=== PATIENT | male | born 1975 | race Caucasian/White ===

== ENCOUNTER → 2016-12-23 | Outpatient (CLI) | payer BC | LOC: MW.CHRC 14:33 | PROVIDERS: ATTEND Family Medicine | DX: R42 Dizziness and giddiness (principal) | CPT/HCPCS: 36415; 86592 ==

== ENCOUNTER 2018-10-12 10:40 | Day surgery (SDC) | payer BC ==
--- NOTE | 2018-10-12 07:11 | PCM.PREANE ---
Preanesthetic Assessment - Procedure Proposed Procedure: excision lesion on nose - Anesthesia/Transfusion/Family Hx Anesthesia History: Prior Anesthesia Without Reaction (colonoscopy, T+A: mac and ga without problems) Family History of Anesthesia Reaction: No Transfusion History: No Prior Transfusion(s) - Review of Systems Pulmonary: No Symptoms (smoker) Other: Reports: None (kidney stones, history of situation depression when parent ) - Physical Assessment NPO Status Date: 10/12/18 NPO Status Time: 00:00 Height: 1.78 m Weight: 78.018 kg - Allergies Allergies/Adverse Reactions: Allergies Allergy/AdvReac Type Severity Reaction Status Date / Time No Known Allergies Allergy Verified 10/10/18 09:09 - Blood Blood Available: No Product(s) Available: None - Anesthesia Plan Pre-Op Medication Ordered: None - Acknowledgements Anesthesia Type Planned: MAC PreAnesthesia Questionnaire HEENT History: Reports: None Gastrointestinal History: Reports: None Genitourinary History: Reports: Renal Calculus Musculoskeletal History: Reports: Fracture Other Musculoskeletal History: hx fx fingers Psychiatric History: Reports: Depression Other Psychiatric History: "depression in the past after parents " - Infectious Disease History Infectious Disease History: Reports: Chicken Pox - Past Surgical History Head Surgeries/Procedures: Reports: None HEENT Surgical History: Reports: Tonsillectomy GI Surgical History: Reports: Colonoscopy - SUBSTANCE USE Smoking Status *Q: Former Smoker Recreational Drug Use History: No - HOME MEDS Home Medications: Home Meds . [No Known Home Meds] 10/10/18 [History] - CURRENT (IN HOUSE) MEDS Current Meds: Current Medications Bupivacaine HCl/Epinephrine Bitart (Marcaine 0.25%/Epinephrine 1:200,000) 10 ml INJECT ONETIME ONE Stop: 10/12/18 08:01 Cefazolin Sodium/Dextrose 2 gm (/ Premix) 50 mls @ 100 mls/hr IV ONETIME ONE Stop: 10/12/18 08:29 Lactated Ringer's (Ringers, Lactated) 1,000 mls @ 125 mls/hr IV ASDIRECTED [facility]
[~2018-10-12 10:40] MED LIST: Bupivacaine 0.25%/EPINEPHrine 1:200,000 10 ML SDV INJECT ONE; Lactated Ringers 1,000 ML IV SCH; Midazolam 1 MG/ML 2 ML SDV ONE; Ondansetron 4 MG/2 ML SDV ONE; Propofol 200 MG/20 ML SDV ONE; ceFAZolin 2 GM in Premix Bag 1 BAG IV ONE; ceFAZolin/Dextrose,Iso-Osmotic 2 GM/50 ML Duplex Bag IV ONE; fentaNYL 250 MCG/5 ML SDV ONE
--- NOTE | 2018-10-12 11:45 | PCM.PREANE ---
Preanesthetic Assessment - Anesthesia/Transfusion/Family Hx Anesthesia History: Prior Anesthesia Without Reaction Family History of Anesthesia Reaction: No Transfusion History: No Prior Transfusion(s) - Review of Systems General: No Symptoms Pulmonary: No Symptoms Cardiovascular: No Symptoms Gastrointestinal: No Symptoms Neurological: No Symptoms Other: Reports: None (kidney stones, history of situation depression when parent ) - Physical Assessment NPO Status Date: 10/12/18 NPO Status Time: 00:00 O2 Sat by Pulse Oximetry: 97 Respiratory Rate: 16 Vital Signs: Last Vital Signs Temp 97.7 F 10/12/18 11:20 Pulse 64 10/12/18 11:20 Resp 16 10/12/18 11:20 BP 135/85 10/12/18 11:20 Pulse Ox 97 10/12/18 11:20 Height: 5 ft 10 in Weight: 78.018 kg ASA Class: 2 Mental Status: Alert & Oriented x3 Airway Class: Mallampati = 1 Dentition: Reports: Normal Dentition ROM/Head Extension: Full Lungs: Clear to Auscultation, Normal Respiratory Effort Cardiovascular: Regular Rate, Regular Rhythm - Allergies Allergies/Adverse Reactions: Allergies Allergy/AdvReac Type Severity Reaction Status Date / Time No Known Allergies Allergy Verified 10/10/18 09:09 - Blood Blood Available: No Product(s) Available: None - Anesthesia Plan Pre-Op Medication Ordered: None - Acknowledgements Anesthesia Type Planned: MAC Pt an Appropriate Candidate for the Planned Anesthesia: Yes Alternatives and Risks of Anesthesia Discussed w Pt/Guardian: Yes Pt/Guardian Understands and Agrees with Anesthesia Plan: Yes Additional Comments: PMH: smoker-vapes, no meds, no alleries, BMI=24 PLAN: MAC PreAnesthesia Questionnaire HEENT History: Reports: None Gastrointestinal History: Reports: None Genitourinary History: Reports: Renal Calculus Musculoskeletal History: Reports: Fracture Other Musculoskeletal History: hx fx fingers Psychiatric History: Reports: Depression Other Psychiatric History: "depression in the past after parents " - Infectious Disease History Infectious Disease History: Reports: Chicken Pox - Past Surgical History Head Surgeries/Procedures: Reports: None HEENT Surgical History: Reports: Tonsillectomy GI Surgical History: Reports: Colonoscopy - SUBSTANCE USE Smoking Status *Q: Former Smoker Recreational Drug Use History: No - HOME MEDS Home Medications: Home Meds . [No Known Home Meds] 10/10/18 [History] - CURRENT (IN HOUSE) MEDS Current Meds: Current Medications Lactated Ringer's (Ringers, Lactated) 1,000 mls @ 125 mls/hr IV ASDIRECTED [facility] Last Admin: 10/12/18 11:19 Dose: 125 mls/hr Discontinued Medications Bupivacaine HCl/Epinephrine Bitart (Marcaine 0.25%/Epinephrine 1:200,000) 10 ml INJECT ONETIME ONE Stop: 10/12/18 08:01 Cefazolin Sodium/Dextrose (Ancef) Confirm Administered Dose 2 gm IV .STK-MED ONE Stop: 10/12/18 09:48 Fentanyl (Sublimaze) Confirm Administered Dose 250 mcg .ROUTE .STK-MED ONE Stop: 10/12/18 09:46 Cefazolin Sodium/Dextrose 2 gm (/ Premix) 50 mls @ 100 mls/hr IV ONETIME ONE Stop: 10/12/18 08:29 Lidocaine HCl (Xylocaine-Mpf 1%) Confirm Administered Dose 5 mls @ as directed .ROUTE .STK-MED ONE Stop: 10/12/18 09:47 Midazolam HCl (Versed 1 Mg/Ml) Confirm Administered Dose 2 mg .ROUTE .STK-MED ONE Stop: 10/12/18 09:46 Ondansetron HCl (Zofran) Confirm Administered Dose 4 mg .ROUTE .STK-MED ONE Stop: 10/12/18 09:47 Propofol (Diprivan 20 Ml) Confirm Administered Dose 200 mg .ROUTE .STK-MED ONE Stop: 10/12/18 09:45
[2018-10-12] MEDS ORDERED: Bupivacaine 25%/EPINEPHrine/PF 30 ML ONE (11:57)
[2018-10-12] MEDS ORDERED: Propofol 200 MG/20 ML SDV ONE (11:58)
--- NOTE | 2018-10-12 13:49 | PCM.OPNOTE ---
- General Post-Op/Procedure Note Date of Surgery/Procedure: 10/12/18 Operative Procedure(s): xcision of left nasal alar basal cell with frozen sections, 1.1cm2 - nasolabial flap closure total area flap + defect 2.5cm2 Pre Op Diagnosis: basal cell left ala of nose Post-Op Diagnosis: Same Anesthesia Technique: Local, MAC Primary Surgeon: Carolina Benitez Janitor Head: Wendy Zhou Complications: None Condition: Good
--- NOTE | 2018-10-12 14:26 | PCM.POSTAN ---
POST ANESTHESIA ASSESSMENT - MENTAL STATUS Mental Status: Alert, Oriented - VITAL SIGNS Pulse Rate: 68 SaO2: 98 Resp Rate: 18 Blood Pressure: 132/85 - RESPIRATORY Respiratory Status: Respiratory Rate WNL, Airway Patent, O2 Saturation Stable - CARDIOVASCULAR CV Status: Pulse Rate WNL - GASTROINTESTINAL GI Status: No Symptoms - PAIN Pain Score: 0 (no pain, no nausea) - POST OP HYDRATION Hydration Status: Adequate & Stable
--- NOTE | 2018-10-12 14:28 | PCM48HPAN ---
Post Anesthesia Note - EVALUATION WITHIN 48HRS OF ANESTHETIC Vital Signs in Normal Range: Yes Patient Participated in Evaluation: Yes Respiratory Function Stable: Yes Airway Patent: Yes Cardiovascular Function Stable: Yes Hydration Status Stable: Yes Pain Control Satisfactory: Yes Nausea and Vomiting Control Satisfactory: Yes Pulse Rate: 68 Resp Rate: 18 Blood Pressure: 132/85 - COMMENTS/OBSERVATIONS Free Text/Narrative:: home with friend
[2018-10-12 14:46] VITALS: BP 118/80
--- NOTE | 2018-10-15 19:40 | OR ---
SURGEON: JUVENCIO NDIAYE MD DATE OF PROCEDURE: 10/12/2018 PREOPERATIVE DIAGNOSIS: Left alar basal cell carcinoma. POSTOPERATIVE DIAGNOSIS: Left alar basal cell carcinoma. PROCEDURE: Excision of left nasal alar basal cell carcinoma with frozen sections, 1.1 cm2 and nasolabial flap closure for total area of flap plus defect being 2.5 cm2. RESERVES CLERK: None. ANESTHESIA: Local MAC. INDICATIONS: Mr. Arreguin is a 43-year-old gentleman with a left nasal alar basal cell carcinoma. Risks and benefits of excision were discussed. Given the delicate nature of the area, he will likely need flap closure for normal contoured appearance. He understands and would like to proceed. Risks were including but not limited to, bleeding, infection, damage to underlying or overlying structures, possible need for future interventions, possible scarring. PROCEDURE IN DETAIL: After informed consent was obtained and placed on the chart, the patient was brought to the operating theater and laid in supine position. After adequate local MAC anesthesia was obtained, the area was prepped and draped and a time- out was completed to confirm side and site. After adequate anesthesia, the left nasal alar basal cell carcinoma was excised around the lesion for 1.1 cm2. It was marked at 12 o'clock position and sent for pathology. Frozen section did return as basal cell with negative margins. Once adequately removed, meticulous hemostasis was obtained at the base using Bovie electrocautery and a transposition nasolabial flap was designed for the nasolabial fold. This was transferred into place and sutured using deep 5-0 Monocryl suture and a running 6-0 Prolene for the skin. The patient tolerated this well with excellent contour at the end of the case and was dressed with Bacitracin. FOLLOWUP INSTRUCTIONS: The patient will see us in 1 week, sooner if any problems, questions, or concerns. [id number] medications for pain control. HEGGTHE / EULALIAL /[id number]
== END 2018-10-12 14:23 | disposition home or self-care (01) ==
LOC: MW.SDS 10:40
PROVIDERS: ATTEND Plastic Surgery
DX: C44.311 Basal cell carcinoma of skin of nose (principal); F17.290 Nicotine dependence, other tobacco product, uncomplicated
CPT/HCPCS: 14060; 88305; 88331; J0690; J2250; J2405; J2704; J3010; J7120; 00300

== ENCOUNTER 2019-01-13 09:59 | Emergency (ER) | payer OTHER, BC ==
[2019-01-13 10:13] VITALS: BP 119/85
--- NOTE | 2019-01-13 11:38 | EDM.PDOC ---
ED HPI GENERAL MEDICAL PROBLEM - General Chief Complaint: Upper Extremity Injury/Pain Stated Complaint: right index finger pain work related Time Seen by Provider: 01/13/19 11:37 Source of Information: Reports: Patient - History of Present Illness INITIAL COMMENTS - FREE TEXT/NARRATIVE: HISTORY AND PHYSICAL: History of present illness: []A show a striking a piece of metal with a 25 pound object and hit his index finger, has bruising otherwise neurovascularly intact bruising is over the distal end of the proximal phalanx on the second digit No fever nausea vomiting chills sweats or other injury Review of systems: As per history of present illness and below otherwise all systems reviewed and negative. Past medical history: As per history of present illness and as reviewed below otherwise noncontributory. Surgical history: As per history of present illness and as reviewed below otherwise noncontributory. Social history: No reported history of drug or alcohol abuse. Family history: As per history of present illness and as reviewed below otherwise noncontributory. Physical exam: HEENT: Atraumatic, normocephalic, pupils reactive, negative for conjunctival pallor or scleral icterus, mucous membranes moist, throat clear, neck supple, nontender, trachea midline. Lungs: Clear to auscultation, breath sounds equal bilaterally, chest nontender. Heart: S1S2, regular, negative for clicks, rubs, or JVD. Abdomen: Soft, nondistended, nontender. Negative for masses or hepatosplenomegaly. Negative for costovertebral tenderness. Pelvis: Stable nontender. Genitourinary: Deferred. Rectal: Deferred. Extremities: Atraumatic, negative for cords or calf pain. Neurovascular unremarkable. Neuro: Awake, alert, oriented. Cranial nerves II through XII unremarkable. Cerebellum unremarkable. Motor and sensory unremarkable throughout. Exam nonfocal. Diagnostics: [Right hand ] Therapeutics: Splint rest ice ibuprofen ] Impression: [Nondisplaced fracture distal end of proximal phalanx second digit on right ], closed Definitive disposition and diagnosis as appropriate pending reevaluation and review of above. - Related Data Allergies Allergy/AdvReac Type Severity Reaction Status Date / Time No Known Allergies Allergy Verified 10/10/18 09:09 Home Meds: Home Meds . [No Known Home Meds] 10/10/18 [History] Past Medical History HEENT History: Reports: None Gastrointestinal History: Reports: None Genitourinary History: Reports: Renal Calculus Musculoskeletal History: Reports: Fracture Other Musculoskeletal History: hx fx fingers Psychiatric History: Reports: Depression Other Psychiatric History: "depression in the past after parents " - Infectious Disease History Infectious Disease History: Reports: Chicken Pox - Past Surgical History Head Surgeries/Procedures: Reports: None HEENT Surgical History: Reports: Tonsillectomy GI Surgical History: Reports: Colonoscopy Social & Family History - Family History Family Medical History: Noncontributory - Tobacco Use Smoking Status *Q: Former Smoker Years of Tobacco use: 25 Used Tobacco, but Quit: Yes Month/Year Tobacco Last Used: 09/2016 - Recreational Drug Use Recreational Drug Use: No Review of Systems - Review of Systems Review Of Systems: See Below ED EXAM, GENERAL - Physical Exam Exam: See Below Course - Vital Signs Last Recorded V/S: Last Vital Signs Temp 97.2 F 01/13/19 10:11 Pulse 75 01/13/19 10:11 Resp 16 01/13/19 10:11 BP 119/85 01/13/19 10:11 Pulse Ox 98 01/13/19 10:11 - Orders/Labs/Meds Orders: Active Orders 24 hr Category Date Time Status Hand Comp Min 3V Rt [CR] Stat Exams 01/13/19 10:00 Taken Departure - Departure Time of Disposition: 11:39 Disposition: Home, Self-Care 01 Condition: Good Clinical Impression: Fracture, finger - Discharge Information Referrals: PCP,Unknown [Primary Care Provider] - Forms: ED Department Discharge Additional Instructions: Splint Rest ice ibuprofen Return if symptoms persist or worsen Follow-up with orthopedis call phone number below to schedule appropriate follow -up [facility] [address], [address] [place] [address] my orthopedic The following information is given to patients seen in the emergency department who are being discharged to home. This information is to outline your options for follow-up care. We provide all patients seen in our emergency department with a follow-up referral. The need for follow-up, as well as the timing and circumstances, are variable depending upon the specifics of your emergency department visit. If you don't have a primary care physician on staff, we will provide you with a referral. We always advise you to contact your personal physician following an emergency department visit to inform them of the circumstance of the visit and for follow-up with them and/or the need for any referrals to a consulting specialist. The emergency department will also refer you to a specialist when appropriate. This referral assures that you have the opportunity for follow-up care with a specialist. All of these measure are taken in an effort to provide you with optimal care, which includes your follow-up. Under all circumstances we always encourage you to contact your private physician who remains a resource for coordinating your care. When calling for follow-up care, please make the office aware that this follow-up is from your recent emergency room visit. If for any reason you are refused follow-up, please contact the [facility] emergency department at and asked to speak to the emergency department charge nurse. , - My Orders Last 24 Hours: My Active Orders 01/13/19 10:00 Hand Comp Min 3V Rt [CR] Stat - Assessment/Plan Last 24 Hours: My Active Orders 01/13/19 10:00 Hand Comp Min 3V Rt [CR] Stat
--- NOTE | 2019-01-13 12:08 | CR ---
INDICATION: Pain COMPARISON: none TECHNIQUE: Three-view right hand FINDINGS: The bones are anatomically aligned. There is no evidence of fracture, erosion or intrinsic bone lesion. The soft tissues appear normal. IMPRESSION: Negative right hand. Dictated by Ludin Cary MD @ Jan 13 2019 12:06PM Signed by Dr. Ludin Cary @ Jan 13 2019 12:06PM
== END 2019-01-13 11:48 | disposition home or self-care (01) ==
LOC: MW.ED 09:59
DX: S62.660A Nondisplaced fracture of distal phalanx of right index finger, initial encounter for closed fracture (principal); Z87.891 Personal history of nicotine dependence; W22.8XXA Striking against or struck by other objects, initial encounter
CPT/HCPCS: 73130-26-RT; 73130-RT; 99283-25